=== PATIENT | female | born 1995 | race Caucasian/White ===

== ENCOUNTER 2018-08-23 14:29 | Emergency (ER) | payer SELFPAY ==
[~2018-08-23] VITALS: Ht 162.6 cm; Wt 85.3 kg
[2018-08-23] MEDS ORDERED: ONDANSETRON ODT 4 MG ONE (15:29)
[2018-08-23 15:30] LABS: BASOPHILS # (AUTO) 0.01 x10^3/uL (0-0.1); BASOPHILS % (AUTO) 0 % (0-1); EOSINOPHILS # (AUTO) 0.16 x10^3/uL (0-0.4); EOSINOPHILS % (AUTO) 1 % (1-7); LYMPHOCYTES # (AUTO) 2.87 x10^3/uL (1-3.4); LYMPHOCYTES % (AUTO) 20 % (22-44); MD NO; MEAN CORPUSCULAR HEMOGLOBIN 28.4 pg (27.0-34.8); MEAN CORPUSCULAR HGB CONC 33.7 g/dL (32.4-35.8); MEAN CORPUSCULAR VOLUME 84.4 fL (80-100); MEAN PLATELET VOLUME 7.2 fL (7.4-10.4); MONOCYTES # (AUTO) 1.03 x10^3/uL (0.2-0.8); MONOCYTES % (AUTO) 7 % (2-9); NEUTROPHILS # (AUTO) 9.98 x10^3/uL (1.8-6.8); NEUTROPHILS % (AUTO) 71 % (42-75); PLATELET COUNT 429 x10^3/uL (130-400); RED BLOOD COUNT 4.63 x10^6/uL (3.82-5.3); RED CELL DISTRIBUTION WIDTH 13.3 % (9.6-15.2)
[2018-08-23] MEDS ORDERED: ONDANSETRON ODT 4 MG PO ONE (15:30)
[2018-08-23 15:42] LABS: ALBUMIN 3.8 g/dL (3.4-5.0); ANION GAP 7 mmol/L (5-15); CALCIUM 9.3 mg/dL (8.5-10.1); CHLORIDE 105 mmol/L (98-107); CREATININE 0.89 mg/dL (0.55-1.02)
[2018-08-23 15:52] LABS: MICROSCOPIC INDICATED
[2018-08-23 15:58] LABS: CULTURE INDICATED? YES
--- NOTE | 2018-08-23 16:27 | NUR ---
PT UP TO RESTROOM. VERY UNSTEADY ON HER FEET. [employer]RAZIER AND BOYFRIEND STANDBY AND WHEEL CHAIR PROVIDED. MADE AWARE.
[2018-08-23] MEDS ORDERED: ACETAMINOPHEN 500 MG TABLET ONE (16:56)
[2018-08-23] MEDS ORDERED: ACETAMINOPHEN 500 MG TABLET PO ONE (17:00)
--- NOTE | 2018-08-23 17:22 | NUR ---
PT FOUND HYPERVENTALATING IN ROOM. PT COACHED IN BREATHING AND RESPS SLOWED FROM 30 /MIN TO 16 / MIN. PT MEDICATED PER ORDER
[2018-08-23 17:25] VITALS: BP 135/85
[2018-08-23 17:28] LABS: ALBUMIN 3.8 g/dL (3.4-5.0); BILIRUBIN, DIRECT 0.1 mg/dL (0.1-0.2)
[2018-08-23 17:30] LABS: BILIRUBIN,INDIRECT 0.3 mg/dL (0.0-2.0); BILIRUBIN,TOTAL 0.4 mg/dL (0.2-1.0); TOTAL PROTEIN 8.1 g/dL (6.4-8.2)
--- NOTE | 2018-08-23 19:02 | NUR ---
REPORT RECEIVED FROM FREDDIE MCDONOUGH.. ASSUMED CARE OF PT
[2018-08-23] MEDS ORDERED: LEVO175T5 PO (19:32)
[2018-08-23] MEDS ORDERED: DULO30CA2 PO (19:33)
[2018-08-23] MEDS ORDERED: LIOT5TAB3 PO (19:34)
[2018-08-23] MEDS ORDERED: XARELTO (19:35)
--- NOTE | 2018-08-23 19:35 | NUR ---
Patient/Caregiver given discharge instructions and they have confirmed that they understand the instructions. Patient ambulatory with steady gait.
[2018-08-23] MEDS ORDERED: OXYC15TA PO (19:36)
[2018-08-23] MEDS ORDERED: ZOLP10TA PO (19:36)
[2018-08-23] MEDS ORDERED: CARI350T PO (19:37)
== END 2018-08-23 19:47 | disposition home or self-care (01) ==
LOC: ED 16:52
DX: O26.891 Other specified pregnancy related conditions, first trimester (principal); R10.32 Left lower quadrant pain; Z3A.08 8 weeks gestation of pregnancy
CPT/HCPCS: 36415; 76700; 76801; 80048; 80076; 81001; 82040; 83690; 84702; 85025; 87086; 99284; Q0162